=== PATIENT | female | born 1945 | race Caucasian/White ===

== ENCOUNTER 2022-03-16 09:20 | Emergency (ER) | payer OTHER ==
[~2022-03-16] VITALS: Ht 157.5 cm; Wt 63.6 kg
[2022-03-16] MEDS ORDERED: METO75TA PO (09:39)
[2022-03-16] MEDS ORDERED: FENO1TAB41 PO (09:39)
[2022-03-16] MEDS ORDERED: PANT40TA29 PO (09:39)
[2022-03-16] MEDS ORDERED: GLIP-163 PO (09:39)
[2022-03-16] MEDS ORDERED: LOSA100T45 PO (09:39)
[2022-03-16] MEDS ORDERED: PROAAER10 INH (09:39)
[2022-03-16] MEDS ORDERED: HYDR12.55 PO (09:39)
[2022-03-16] MEDS ORDERED: ELIQ5TAB PO (09:39)
[2022-03-16 12:19] LABS: BASO % 0.4 % (0.0-1.0); EOS # 0.2 10^3/uL (0.0-0.5); EOS % 2.3 % (0.0-3.0); HEMATOCRIT 43.8 % (36.0-47.0); LYMPH # 0.9 10^3/uL (1.5-5.0); LYMPH % 9.7 % (24.0-44.0); MEAN CORPUSCULAR HEMOGLOBIN 28.1 pg (27.0-33.0); MEAN CORPUSCULAR VOLUME 87.8 fl (80.0-96.0); MONO # 0.7 10^3/uL (0.0-0.8); MONO % 7.7 % (2.0-8.0); NEUTROPHILS # 7.4 10^3/uL (1.5-8.5); NEUTROPHILS % 79.6 % (36.0-66.0); PLATELET COUNT, AUTOMATED 490 10^3/uL (150-450); RED BLOOD COUNT 4.99 10^6/uL (4.00-5.40); WHITE BLOOD COUNT 9.3 10^3/uL (4.0-10.0)
[2022-03-16 13:10] LABS: ALBUMIN 4.4 GM/DL (3.2-5.2); BILIRUBIN,DIRECT 0.5 MG/DL (0.0-0.2); BILIRUBIN,TOTAL 1.2 MG/DL (0.2-1.0); TOTAL PROTEIN 8.2 GM/DL (6.4-8.2)
[2022-03-16 13:58] LABS: RSV AMPLIFICATION NEGATIVE (NEGATIVE)
[2022-03-16] MEDS ORDERED: AMOXICILLIN 500 MG CAP PO ONE (14:55)
[2022-03-16] MEDS ORDERED: AMOX875T2 PO (14:56)
[2022-03-16] MEDS ORDERED: ONDA4TAB6 PO (14:56)
[2022-03-16 15:16] VITALS: BP 186/90
== END 2022-03-16 15:18 | disposition home or self-care (01) ==
LOC: EDBD 09:20 → M ED 09:20
DX: R03.0 Elevated blood-pressure reading, without diagnosis of hypertension (principal); J18.9 Pneumonia, unspecified organism; R91.1 Solitary pulmonary nodule; R00.1 Bradycardia, unspecified; I48.91 Unspecified atrial fibrillation; E11.9 Type 2 diabetes mellitus without complications; F32.A Depression, unspecified; Z85.118 Personal history of other malignant neoplasm of bronchus and lung; Z88.2 Allergy status to sulfonamides; Z91.041 Radiographic dye allergy status; Z79.01 Long term (current) use of anticoagulants; Z79.899 Other long term (current) drug therapy

== ENCOUNTER 2022-03-28 09:23 | Inpatient (IN) | payer MEDICARE, OTHER ==
[~2022-03-28] VITALS: Ht 157.5 cm; Wt 64.8 kg
[~2022-03-28 09:23] MED LIST: AMOX875T2 PO; ELIQ5TAB PO; FENO1TAB41 PO; GLIP-163 PO; HYDR12.55 PO; LOSA100T45 PO; METO75TA PO; ONDA4TAB6 PO; PANT40TA29 PO; PROAAER10 INH
[2022-03-28] MEDS ORDERED: ONDANSETRON 4MG/2ML VIAL IV ONE (09:40)
[2022-03-28 10:16] LABS: BASO # 0.1 10^3/uL (0.0-0.2); BASO % 0.8 % (0.0-1.0); EOS # 0.4 10^3/uL (0.0-0.5); EOS % 4.3 % (0.0-3.0); HEMATOCRIT 46.7 % (36.0-47.0); HEMOGLOBIN 14.9 g/dl (12.0-15.5); LYMPH # 1.2 10^3/uL (1.5-5.0); LYMPH % 11.8 % (24.0-44.0); MEAN CORPUSCULAR HEMOGLOBIN 27.7 pg (27.0-33.0); MEAN CORPUSCULAR HGB CONC 31.9 g/dl (32.0-36.5); MONO # 0.9 10^3/uL (0.0-0.8); MONO % 8.6 % (2.0-8.0); NEUTROPHILS # 7.5 10^3/uL (1.5-8.5); NEUTROPHILS % 74.2 % (36.0-66.0); PLATELET COUNT, AUTOMATED 515 10^3/uL (150-450); RED BLOOD COUNT 5.37 10^6/uL (4.00-5.40); WHITE BLOOD COUNT 10.1 10^3/uL (4.0-10.0)
[2022-03-28 10:41] LABS: CK-MB VALUE MASS 1.6 NG/ML (<3.6); MB/CK RELATIVE INDEX 2.67 (< OR =4)
[2022-03-28 10:45] LABS: INR 1.31; PROTHROMBIN TIME 16.7 SECONDS (12.7-14.5)
[2022-03-28 10:48] LABS: BILIRUBIN,DIRECT 0.4 MG/DL (0.0-0.2); BILIRUBIN,TOTAL 0.6 MG/DL (0.2-1.0); FREE T4 1.19 NG/DL (0.76-1.46); THYROID STIMULATING HORMONE 1.76 uIU/ML (0.358-3.740); TOTAL PROTEIN 7.6 GM/DL (6.4-8.2)
[2022-03-28 10:57] LABS: RSV AMPLIFICATION NEGATIVE (NEGATIVE)
[2022-03-28] MEDS: METOPROLOL 5 MG/5 ML VIAL IV SCH ×3 (11:10→11:20)
[2022-03-28 11:30] LABS: CK-MB VALUE MASS 1.7 NG/ML (<3.6); MB/CK RELATIVE INDEX 3.09 (< OR =4)
[2022-03-28] MEDS ORDERED: METOPROLOL TART 25 MG TABLET PO ONE (11:40)
[2022-03-28 13:21] LABS: CK-MB VALUE MASS 1.4 NG/ML (<3.6); MB/CK RELATIVE INDEX 2.75 (< OR =4)
[2022-03-28] MEDS ORDERED: BUSP5TA PO (14:29)
[2022-03-28] MEDS ORDERED: AMLO1TAB24 PO (14:29)
[2022-03-28] MEDS ORDERED: HYDR-3490 PO (15:30)
[2022-03-28] MEDS ORDERED: FENO160T10 PO (15:30)
[2022-03-28] MEDS ORDERED: SERT50TA29 PO (15:30)
[2022-03-28] MEDS ORDERED: OYST500C PO (15:30)
[2022-03-28] MEDS ORDERED: HOME MED LIST COMPLETE! XX SCH (15:30)
[2022-03-28] MEDS ORDERED: VITA-158 PO (15:30)
[2022-03-28] MEDS ORDERED: busPIRone 5 MG TAB PO PRN (15:35)
[2022-03-28] MEDS ORDERED: GLUCAGON INJ 1MG VIAL SC PRN (15:35)
[2022-03-28] MEDS ORDERED: ALBUTEROL 90 MCG/ACT 8GM HFA INHALER INH PRN (15:35)
[2022-03-28] MEDS ORDERED: GLUCOSE 4GM CHEW TABLET PO PRN (15:35)
[2022-03-28] MEDS ORDERED: DEXTROSE 50% 50 ML SYRINGE IV PRN (15:35)
[2022-03-28] MEDS ORDERED: ACETAMINOPHEN TAB 650MG DOSE (2X325MG) PO PRN (15:40)
[2022-03-28] MEDS ORDERED: ONDANSETRON 4MG/2ML VIAL IV PRN (15:45)
[2022-03-28] MEDS: NS 1,000 ML IV SCH (17:34)
[2022-03-28] MEDS: INSULIN LISPRO (NovoLOG) PER UNIT SC SCH (18:05)
[2022-03-28] MEDS: SUCRALFATE 1 GM TAB PO SCH ×2 (18:05→21:36)
[2022-03-28 18:38] VITALS: BP 127/72
[2022-03-28 20:00] VITALS: BP 136/78
[2022-03-28] MEDS ORDERED: FENOFIBRATE 145MG TABLET (TRICOR) PO SCH (21:00)
[2022-03-28] MEDS ORDERED: INSULIN LISPRO (NovoLOG) PER UNIT SC SCH (21:00)
[2022-03-28] MEDS: METOPROLOL TARTRATE 100MG TAB PO SCH (21:36)
[2022-03-28] MEDS: APIXABAN 5 MG TAB (ELIQUIS) PO SCH (21:36)
[2022-03-29] VITALS: BP 142/64
[2022-03-29 04:00] VITALS: BP 146/68
[2022-03-29] MEDS: NS 1,000 ML IV SCH ×2 (04:57→16:45)
[2022-03-29 06:15] LABS: HEMATOCRIT 41.2 % (36.0-47.0); HEMOGLOBIN 13.1 g/dl (12.0-15.5); MEAN CORPUSCULAR HEMOGLOBIN 27.8 pg (27.0-33.0); MEAN CORPUSCULAR HGB CONC 31.8 g/dl (32.0-36.5); MEAN CORPUSCULAR VOLUME 87.5 fl (80.0-96.0); RED BLOOD COUNT 4.71 10^6/uL (4.00-5.40); WHITE BLOOD COUNT 6.8 10^3/uL (4.0-10.0)
[2022-03-29 06:24] LABS: PLATELET COUNT, AUTOMATED 408 10^3/uL (150-450)
[2022-03-29 06:35] LABS: CALCIUM LEVEL 8.8 MG/DL (8.8-10.2); CHOLESTEROL RISK RATIO 4.093 (<5); CREATININE FOR GFR 1.37 MG/DL (0.55-1.30); GLOMERULAR FILTRATION RATE 39.7 (>39); POTASSIUM SERUM 3.9 MEQ/L (3.5-5.1)
[2022-03-29 06:52] LABS: HEMOGLOBIN A1c 5.2 %
[2022-03-29] MEDS: INSULIN LISPRO (NovoLOG) PER UNIT SC SCH ×3 (07:30→17:30)
[2022-03-29 08:00] VITALS: BP 159/74
[2022-03-29] MEDS: APIXABAN 5 MG TAB (ELIQUIS) PO SCH (08:56)
[2022-03-29] MEDS: SUCRALFATE 1 GM TAB PO SCH ×3 (08:56→17:30)
[2022-03-29 08:58] VITALS: BP 159/74
[2022-03-29] MEDS: METOPROLOL TARTRATE 100MG TAB PO SCH (08:58)
[2022-03-29] MEDS ORDERED: SERTRALINE HCL 25 MG TABLET PO SCH (09:00)
[2022-03-29] MEDS ORDERED: PANTOPRAZOLE 40MG TAB (PROTONIX) PO SCH (09:00)
[2022-03-29] MEDS ORDERED: ASCORBIC ACID 500 MG TAB PO SCH (09:00)
[2022-03-29 12:00] VITALS: BP 158/82
[2022-03-29 16:00] VITALS: BP 143/73
== END 2022-03-29 18:39 | disposition home or self-care (01) | DRG 309 ==
LOC: EDBD 09:23 → M ED 09:23 → M PCU 15:02 → M ED INP 15:02 → ENRESERV 16:34 → M PCU 18:31
PROVIDERS: ADMIT Internal Medicine; ATTEND Internal Medicine
DX: I48.91 Unspecified atrial fibrillation (principal); C34.90 Malignant neoplasm of unspecified part of unspecified bronchus or lung; E11.9 Type 2 diabetes mellitus without complications; I10 Essential (primary) hypertension; J45.909 Unspecified asthma, uncomplicated; F41.9 Anxiety disorder, unspecified; F32.A Depression, unspecified; R10.13 Epigastric pain; Z79.01 Long term (current) use of anticoagulants; Z79.84 Long term (current) use of oral hypoglycemic drugs; Z79.899 Other long term (current) drug therapy; Z88.2 Allergy status to sulfonamides; Z91.040 Latex allergy status; Z91.041 Radiographic dye allergy status